=== PATIENT | male | born 1990 | race American Indian/Alaskan Native ===

== ENCOUNTER 2017-10-03 19:28 | Emergency (ER) | payer SELFPAY ==
[2017-10-03 20:04] VITALS: BP 108/69
[2017-10-03 20:36] LABS: Mucus,Urine 3+ /HPF
[2017-10-03 20:38] LABS: Bilirubin,Urine Negative (Negative); Blood,Urine Negative (Negative); Color,Urine Yellow (Yellow); Protein,Urine <15 mg/dL mg/dL (Negative); Urobilinogen,Urine < 2.0 mg/dL (<2.0)
[2017-10-03] MEDS ORDERED: ROCEPHIN IM ONE (23:57)
[2017-10-03] MEDS ORDERED: ZITHROMAX PO ONE (23:57)
[2017-10-03] MEDS ORDERED: XYLOCAINE 1% MPF 5 mL INFILTRATI ONE (23:57)
--- NOTE | 2017-10-04 00:51 | Emergency Department Report ---
ED Male HPI - General Chief complaint: Urogenital-Male Stated complaint: BURNING URINATION Time Seen by Provider: 10/03/17 23:57 Source: patient Mode of arrival: Ambulatory Limitations: No Limitations - History of Present Illness Initial comments: Patient is a 27-year-old male who presents for STD exposure Advise Him of gonorrhea patient requesting treatment for same does endorse dysuria or burning with urination or penile discharge no rashes lesions to open wounds MD Complaint: penile discharge, dysuria Onset/Timin Location: penis Radiation: none Severity: moderate Severity scale (0 -10): 3 Quality: burning Consistency: intermittent Improves with: none Worsens with: urination new sexual partner denies other symptoms - Related Data Sexually active: Yes Previous Rx's Medication Instructions Recorded Last Taken Type Doxycycline [Vibramycin CAP] 100 mg PO BID #20 capsule 10/04/17 Unknown Rx Allergies Allergy/AdvReac Type Severity Reaction Status Date / Time No Known Allergies Allergy Unverified 10/03/17 20:00 ED Review of Systems ROS: Stated complaint: BURNING URINATION Other details as noted in HPI Constitutional: denies: chills, fever Eyes: denies: eye pain, eye discharge, vision change ENT: denies: ear pain, throat pain Respiratory: denies: cough, shortness of breath, wheezing Cardiovascular: denies: chest pain, palpitations Endocrine: no symptoms reported Gastrointestinal: denies: abdominal pain, nausea, diarrhea Genitourinary: urgency, dysuria, discharge. denies: hematuria, testicular pain , testicular mass Musculoskeletal: denies: back pain, joint swelling, arthralgia Skin: denies: rash, lesions Neurological: denies: headache, weakness, paresthesias Psychiatric: denies: anxiety, depression Hematological/Lymphatic: denies: easy bleeding, easy bruising ED Past Medical Hx - Past Medical History Hx Asthma: Yes - Surgical History Past Surgical History?: No - Social History Smoking Status: Never Smoker Substance Use Type: None - Medications Home Medications: Home Medications Medication Instructions Recorded Confirmed Last Taken Type Doxycycline [Vibramycin CAP] 100 mg PO BID #20 capsule 10/04/17 Unknown Rx ED Physical Exam - General Limitations: No Limitations General appearance: alert, in no apparent distress - Head Head exam: Present: atraumatic, normocephalic - Eye Eye exam: Present: normal appearance - ENT ENT exam: Present: mucous membranes moist - Neck Neck exam: Present: normal inspection - Respiratory Respiratory exam: Present: normal lung sounds bilaterally. Absent: respiratory distress, wheezes, stridor, chest wall tenderness - Cardiovascular Cardiovascular Exam: Present: regular rate, normal rhythm, normal heart sounds. Absent: systolic murmur, diastolic murmur, rubs, gallop - GI/Abdominal GI/Abdominal exam: Present: soft, normal bowel sounds. Absent: distended, rebound, bruit, hernia - Rectal Rectal exam: Present: deferred - Extremities Exam Extremities exam: Present: normal inspection - Back Exam Back exam: Present: normal inspection - Neurological Exam Neurological exam: Present: alert, oriented X3, CN II-XII intact, normal gait, reflexes normal - Psychiatric Psychiatric exam: Present: normal affect, normal mood - Skin Skin exam: Present: warm, dry, intact ED Course Vital Signs 10/03/17 20:00 Temperature 98.2 F Pulse Rate 64 Respiratory 18 Rate Blood Pressure 108/69 [Left] O2 Sat by Pulse 100 Oximetry ED Medical Decision Making - Medical Decision Making This is an STI patient treated for STD will follow-up with [facility] department for HIV and HSV screening DC'd home with doxycycline by mouth twice a day for 10 days patient will abstain from sex until treatment completed and follow up with health department he verbalizes understanding and agreement with same will be DC 'd home in stable condition at this time Critical care attestation.: If time is entered above; I have spent that time in minutes in the direct care of this critically ill patient, excluding procedure time. ED Disposition Clinical Impression: STD (male) Disposition: DC- TO HOME OR SELFCARE Is pt being admited?: No Does the pt Need Aspirin: No Condition: Good Instructions: Sexually Transmitted Diseases (ED) Additional Instructions: follow up with [facility] for hiv and hsv screening and follow up Prescriptions: Doxycycline [Vibramycin CAP] 100 mg PO BID #20 capsule [facility] - [facility]5 Days Forms: Work/School Release Form(ED) Time of Disposition: 00:52
== END 2017-10-04 00:59 | disposition home or self-care (01) ==
LOC: ED 19:28
DX: A64 Unspecified sexually transmitted disease (principal); J45.909 Unspecified asthma, uncomplicated
CPT/HCPCS: 81001; 87591; 96372; 99283; J0696

== ENCOUNTER 2018-10-03 12:49 | Emergency (ER) | payer SELFPAY ==
--- NOTE | 2018-10-03 13:00 | Emergency Department Report ---
Blank Doc - Documentation Documentation: This is a 28-year-old male that presents with headache and cough. Stated gets headaches when coughing. Denies any SOB. Denies worst headache or thunderclap headache. This initial assessment/diagnostic orders/clinical plan/treatment(s) is/are subject to change based on patient's health status, clinical progression and re- assessment by fellow clinical providers in the ED. Further treatment and workup at subsequent clinical providers discretion. Patient/guardians urged not to elope from the ED as their condition may be serious if not clinically assessed and managed. Initial orders include: 1- Patient sent to [facility] for further evaluation and treatment 2- CXR
--- NOTE | 2018-10-03 13:34 | XRay Report ---
CHEST 2 VIEWS INDICATION: cough. COMPARISON: None FINDINGS: Support devices: None. Heart: Within normal limits. Lungs/pleura: No acute air space or interstitial disease. No pneumothorax. Additional findings: None. IMPRESSION: No acute findings. Signer Name: Agus Loza Jr, MD Signed: 10/03/2018 1:30 PM Workstation Name: [id number]
[2018-10-03] MEDS ORDERED: NACL 0.9% 1000 ML 1,000 ML IV ONE (18:21)
[2018-10-03] MEDS ORDERED: REGLAN IV ONE (18:21)
[2018-10-03] MEDS ORDERED: BANOPHEN PO ONE (18:21)
[2018-10-03 18:41] LABS: Hematocrit 46.7 % (35.5-45.6); Hemoglobin 15.9 gm/dl (11.8-15.2); Mean Corpuscular HGB Conc 34 % (32-34); Mean Corpuscular Volume 87 fl (84-94); Platelet Count 162 K/mm3 (140-440); Red Blood Count 5.37 M/mm3 (3.65-5.03); Red Cell Distribution Width 14.3 % (13.2-15.2)
[2018-10-03 18:51] LABS: Basophils % (Auto) 0.4 % (0.0-1.8); Eosinophils % (Auto) 0.1 % (0.0-4.3); Lymphocytes # (Auto) 0.5 K/mm3 (1.2-5.4); Lymphocytes % (Auto) 10.5 % (13.4-35.0); Monocytes % (Auto) 14.5 % (0.0-7.3)
[2018-10-03 18:52] LABS: Basophils # (Auto) 0.1 K/mm3 (0.0-0.1); Monocytes # (Auto) 0.7 K/mm3 (0.0-0.8)
[2018-10-03] MEDS ORDERED: TYLENOL PO ONE (19:00)
[2018-10-03 19:40] LABS: Alanine Aminotransferase 14 units/L (7-56); BUN/Creatinine Ratio 12; Blood Urea Nitrogen 13 mg/dL (9-20); Calcium 8.9 mg/dL (8.4-10.2); Hemolysis Index 24
--- NOTE | 2018-10-03 20:17 | Emergency Department Report ---
ED General Adult HPI - General Chief complaint: Chest Pain Stated complaint: HEADACHE/CHEST PAIN Time Seen by Provider: 10/03/18 12:59 Source: patient Mode of arrival: Ambulatory Limitations: No Limitations - History of Present Illness Initial comments: Patient is a 28-year-old male presents to the emergency room with complaints of a headache that began a couple days ago. He has associated subjective fever and rhinorrhea. The patient states that for the last 5 days he has been working outside in the sun. He states he has been drinking sodas and not drinking water. He denies any vomiting, diarrhea, cough, sore throat, earache. He denies any sick contacts. The patient states he took Benadryl one time with some relief. He states he has a past medical history of asthma. He denies being on any daily medications or any allergies to medications. Severity scale (0 -10): 5 - Related Data Previous Rx's Medication Instructions Recorded Last Taken Type DOXYCYCLINE Hyclate [Vibramycin 100 mg PO BID #20 capsule 10/04/17 Unknown Rx CAP] Allergies Allergy/AdvReac Type Severity Reaction Status Date / Time No Known Allergies Allergy Verified 10/03/18 12:52 ED Review of Systems ROS: Stated complaint: HEADACHE/CHEST PAIN Other details as noted in HPI Comment: All other systems reviewed and negative ED Past Medical Hx - Past Medical History Previous Medical History?: Yes Hx Asthma: Yes - Surgical History Past Surgical History?: Yes - Social History Smoking Status: Never Smoker Substance Use Type: None, Marijuana - Medications Home Medications: Home Medications Medication Instructions Recorded Confirmed Last Taken Type DOXYCYCLINE Hyclate [Vibramycin 100 mg PO BID #20 capsule 10/04/17 Unknown Rx CAP] ED Physical Exam - General Limitations: No Limitations General appearance: alert, in no apparent distress - Head Head exam: Present: atraumatic, normocephalic - Eye Eye exam: Present: normal appearance, PERRL, EOMI - ENT ENT exam: Present: normal orophraynx, mucous membranes moist, TM's normal bilaterally, normal external ear exam, other (no sinus tenderness to palpation bilaterally ) - Neck Neck exam: Present: full ROM. Absent: meningismus - Respiratory Respiratory exam: Present: normal lung sounds bilaterally. Absent: respiratory distress, wheezes, rales, rhonchi, stridor, chest wall tenderness, accessory muscle use, decreased breath sounds, prolonged expiratory - Cardiovascular Cardiovascular Exam: Present: regular rate, normal rhythm, normal heart sounds. Absent: systolic murmur, diastolic murmur, rubs, gallop - GI/Abdominal GI/Abdominal exam: Present: soft, normal bowel sounds. Absent: distended, tenderness, guarding, rebound, rigid - Neurological Exam Neurological exam: Present: alert, oriented X3 - Psychiatric Psychiatric exam: Present: normal affect, normal mood - Skin Skin exam: Present: warm, dry, intact ED Course Vital Signs 10/03/18 10/03/18 10/03/18 12:59 19:03 20:43 Temperature 98.2 F 102.9 F H 98.6 F Pulse Rate 76 75 62 Respiratory 18 18 16 Rate Blood Pressure 134/87 Blood Pressure 137/79 107/66 [Right] O2 Sat by Pulse 100 98 97 Oximetry ED Medical Decision Making - Lab Data Result diagrams: 10/03/18 18:26 10/03/18 18:26 Lab Results 10/03/18 10/03/18 Range/Units 18:26 18:26 WBC 4.9 (4.5-11.0) K/mm3 RBC 5.37 H (3.65-5.03) M/mm3 Hgb 15.9 H (11.8-15.2) gm/dl Hct 46.7 H (35.5-45.6) % MCV 87 (84-94) fl MCH 30 (28-32) pg MCHC 34 (32-34) % RDW 14.3 (13.2-15.2) % Plt Count 162 (140-440) K/mm3 Lymph % (Auto) 10.5 L (13.4-35.0) % [place] % (Auto) 14.5 H (0.0-7.3) % Eos % (Auto) 0.1 (0.0-4.3) % Baso % (Auto) 0.4 (0.0-1.8) % Lymph # 0.5 L (1.2-5.4) K/mm3 [place] # 0.7 (0.0-0.8) K/mm3 Eos # 0.0 (0.0-0.4) K/mm3 Baso # 0.1 (0.0-0.1) K/mm3 Seg Neutrophils % 71.8 H (40.0-70.0) % Seg Neutrophils # 3.5 (1.8-7.7) K/mm3 Sodium 136 L (137-145) mmol/L Potassium 3.8 (3.6-5.0) mmol/L Chloride 100.1 (98-107) mmol/L Carbon Dioxide 25 (22-30) mmol/L Anion Gap 15 mmol/L BUN 13 (9-20) mg/dL Creatinine 1.1 (0.8-1.5) mg/dL Estimated GFR > 60 ml/min BUN/Creatinine Ratio 12 % Glucose 85 (75-100) mg/dL Calcium 8.9 (8.4-10.2) mg/dL Total Bilirubin 0.30 (0.1-1.2) mg/dL AST 31 (5-40) units/L ALT 14 (7-56) units/L Alkaline Phosphatase 59 (35-129) units/L Total Creatine Kinase 473 H (55-170) units/L Total Protein 7.2 (6.3-8.2) g/dL Albumin 4.0 (3.9-5) g/dL Albumin/Globulin Ratio 1.3 % - Radiology Data Radiology results: report reviewed CHEST 2 VIEWS INDICATION: cough. COMPARISON: None FINDINGS: Support devices: None. Heart: Within normal limits. Lungs/pleura: No acute air space or interstitial disease. No pneumothorax. Additional findings: None. IMPRESSION: No acute findings. Signer Name: Agus Mast Jr, MD Signed: 10/03/2018 1:30 PM Workstation Name: [id number] Transcribed By: TTR Dictated By: AGUS MAST JR, MD Electronically Authenticated By: AGUS MAST JR, MD Signed Date/Time: 10/03/18 8990 - Medical Decision Making Patient is a 28-year-old male presents to the emergency room with complaints of a headache that began a couple days ago. He has associated subjective fever and rhinorrhea. The patient states that for the last 5 days he has been working outside in the sun. He states he has been drinking sodas and not drinking water. He denies any vomiting, diarrhea, cough, sore throat, earache. He denies any sick contacts. The patient states he took Benadryl one time with some relief. He states he has a past medical history of asthma. He denies b eing on any daily medications or any allergies to medications. pt initially febrile, given tylenol and now afebrile, rest of vitals WNL. labs with mildly elevated CK otherwise stable. CXR with no acute process. pt given 1L of fluids, reglan, and benadryl. pt states he feels much better states he is ready to go home and is now hungry and ready to eat and states all his symptoms are better. pt symptoms and examination consistent with viral syndrome/dehyration. advised pt to please drink lots of fluids over the next few days. Please get plenty of rest. Follow-up with primary care doctor in the next 2-3 days. return to the emergency room for any new or worsening symptoms. - Differential Diagnosis dehydration, rhabdo, URI, sinusitis, viral syndrome Critical care attestation.: If time is entered above; I have spent that time in minutes in the direct care of this critically ill patient, excluding procedure time. ED Disposition Clinical Impression: Rhinorrhea Headache Qualifiers: Headache type: unspecified Headache chronicity pattern: acute headache Intractability: not intractable Qualified Code(s): R51 - Headache Fever Qualifiers: Fever type: unspecified Qualified Code(s): R50.9 - Fever, unspecified Disposition: DC-01 TO HOME OR SELFCARE Is pt being admited?: No Does the pt Need Aspirin: No Condition: Stable Instructions: Dehydration (ED), Viral Syndrome (ED) Additional Instructions: Please drink lots of fluids over the next few days. Please get plenty of rest. Follow-up with primary care doctor in the next 2-3 days. return to the emergency room for any new or worsening symptoms. Referrals: ESA TEJEDA MD [Primary Care Provider] - 2-3 Days [facility] [Outside] - 2-3 Days [facility] [Outside] - 2-3 Days Forms: Work/School Release Form(ED) Time of Disposition: 20:21 Print Language: GERMAN
[2018-10-03 20:45] VITALS: BP 107/66
== END 2018-10-03 20:48 | disposition home or self-care (01) ==
LOC: ED 12:49
DX: R51 Headache (principal); J34.89 Other specified disorders of nose and nasal sinuses; R50.9 Fever, unspecified; J45.909 Unspecified asthma, uncomplicated; F12.10 Cannabis abuse, uncomplicated
CPT/HCPCS: 36415; 71046; 80053; 82550; 85025; 96374; 99284; J2765; J7030; Q0163

== ENCOUNTER 2020-04-25 09:35 | Emergency (ER) | payer SELFPAY ==
[2020-04-25] MEDS ORDERED: PIPERACILLIN/TAZOBACTAM 3.375 3.375 GM/50 ML BAG IV ONE (10:15)
[2020-04-25] MEDS ORDERED: KETOROLAC 30 MG/1 ML INJ IV ONE (10:15)
[2020-04-25] MEDS ORDERED: SODIUM CHLORIDE 0.9% 1000 ML 1,000 ML IV ONE (10:15)
--- NOTE | 2020-04-25 10:16 | Event Note ---
ED Screening Note Date of service: 04/25/20 Time: 10:16 ED Screening Note: Patient reports swelling to the right groin. Started of small 1 week ago but has been getting worse and more painful. He reports urinary frequency but no other UTI symptoms. He denies any penile discharge. He denies any testicular pain or swelling. He denies any fever or chills at home. Physical exam: Large area of swelling noted to the right groin area with associated cellulitis This initial assessment/diagnostic orders/clinical plan/treatment(s) is/are subject to change based on patients health status, clinical progression and re- assessment by fellow clinical providers in the ED. Further treatment and workup at subsequent clinical providers discretion. Patient/guardian urged not to elope from the ED as their condition may be serious if not clinically assessed and managed. Initial orders include: CBC, CMP, CT abdomen pelvis with IV contrast, lactic acid and blood cultures
--- NOTE | 2020-04-25 10:39 | Emergency Department Report ---
HPI - General Chief Complaint: Abdominal Pain Time Seen by Provider: 04/25/20 10:04 - HPI HPI: This is a 29-year-old -[place] male presents to the emergency department with a complaint of swelling to the right groin that has been going on for the past week and getting progressively bigger and slightly more painful. The patient says that he does not actually very painful, but there is a pressure sensation as it has grown. He denies any problems with bowel or bladder, but says that he feels like he has to urinate more frequently due to the pressure in this area. He is sexually active but says it has been a few months since he did engage in any sexual intercourse. He does have a history of having gonorrhea and chlamydia in the past. He denies any penile discharge, rash or lesions to the genitals. He denies any fever, nausea, vomiting, abdominal pain. He has not taken anything for his symptoms prior to presentation. ED Past Medical Hx - Past Medical History Previous Medical History?: Yes Hx Asthma: Yes - Surgical History Past Surgical History?: Yes - Social History Smoking Status: Never Smoker Substance Use Type: None - Medications Home Medications: Home Medications Medication Instructions Recorded Confirmed Last Taken Type DOXYCYCLINE Hyclate [Vibramycin 100 mg PO BID #14 capsule 04/25/20 Unknown Rx CAP] ED Review of Systems ROS: Stated complaint: PAINFUL LUMP ON RIGHT SIDE PELVIC AREA Other details as noted in HPI Comment: All other systems reviewed and negative Constitutional: denies: chills, fever Eyes: denies: eye pain, vision change ENT: denies: ear pain, throat pain Respiratory: denies: cough, shortness of breath Cardiovascular: denies: chest pain, palpitations Gastrointestinal: denies: abdominal pain, vomiting Genitourinary: frequency, other (Right groin pain and swelling). denies: discharge, testicular pain Musculoskeletal: denies: back pain, arthralgia Skin: denies: rash, lesions Neurological: denies: headache, weakness Physical Exam - Physical Exam Vital Signs: Vital Signs 04/25/20 09:41 Temperature 99.2 F Pulse Rate 81 Respiratory 16 Rate Blood Pressure 133/80 O2 Sat by Pulse 99 Oximetry Physical Exam: GENERAL: The patient is well-developed well-nourished. HENT: Normocephalic. Atraumatic. Patient has moist mucous membranes. EYES: Extraocular motions are intact. NECK: Supple. Trachea is midline. CHEST/LUNGS: Clear to auscultation. There is no respiratory distress noted. HEART/CARDIOVASCULAR: Regular. There is no tachycardia. There is no murmur. ABDOMEN: Abdomen is soft, nontender. Patient has normal bowel sounds. There is no abdominal distention. SKIN: Skin is warm and dry. NEURO: The patient is awake, alert, and oriented. The patient is cooperative. The patient has no focal neurologic deficits. Normal speech. MUSCULOSKELETAL: There is no tenderness or deformity. : There is a moderate sized, firm but mobile, node to the right groin. This area is slightly tender to palpation. No fluctuance. No erythema. ED Course Vital Signs 04/25/20 09:41 Temperature 99.2 F Pulse Rate 81 Respiratory 16 Rate Blood Pressure 133/80 O2 Sat by Pulse 99 Oximetry ED Medical Decision Making - Lab Data Result diagrams: 04/25/20 10:37 04/25/20 10:37 Lab Results 04/25/20 04/25/20 04/25/20 Range/Units 10:37 10:37 10:37 WBC 8.5 (4.5-11.0) K/mm3 RBC 4.75 (3.65-5.03) M/mm3 Hgb 13.6 (11.8-15.2) gm/dl Hct 41.2 (35.5-45.6) % MCV 87 (84-94) fl MCH 29 (28-32) pg MCHC 33 (32-34) % RDW 14.9 (13.2-15.2) % Plt Count 214 (140-440) K/mm3 Lymph % (Auto) 18.0 (13.4-35.0) % [place] % (Auto) 12.5 H (0.0-7.3) % Eos % (Auto) 0.6 (0.0-4.3) % Baso % (Auto) 0.3 (0.0-1.8) % Lymph # (Auto) 1.5 (1.2-5.4) K/mm3 [place] # (Auto) 1.1 H (0.0-0.8) K/mm3 Eos # (Auto) 0.0 (0.0-0.4) K/mm3 Baso # (Auto) 0.0 (0.0-0.1) K/mm3 Seg Neutrophils % 68.6 (40.0-70.0) % Seg Neutrophils # 5.9 (1.8-7.7) K/mm3 Sodium 137 (137-145) mmol/L Potassium 3.5 L (3.6-5.0) mmol/L Chloride 100.4 (98-107) mmol/L Carbon Dioxide 29 (22-30) mmol/L Anion Gap 11 mmol/L BUN 11 (9-20) mg/dL Creatinine 1.1 (0.8-1.3) mg/dL Estimated GFR > 60 ml/min BUN/Creatinine Ratio 10 % Glucose 95 (75-100) mg/dL Lactic Acid 0.90 (0.7-2.0) mmol/L Calcium 8.8 (8.4-10.2) mg/dL Total Bilirubin 0.50 (0.1-1.2) mg/dL AST 20 (5-40) units/L ALT 10 (7-56) units/L Alkaline Phosphatase 61 (35-129) units/L Total Protein 8.3 H (6.3-8.2) g/dL Albumin 3.9 (3.9-5) g/dL Albumin/Globulin Ratio 0.9 % Urine Color (Yellow) Urine Turbidity (Clear) Urine pH (5.0-7.0) Ur Specific [place] (1.003-1.030) Urine Protein (Negative) mg/dL Urine Glucose (UA) (Negative) mg/dL Urine Ketones (Negative) mg/dL Urine Blood (Negative) Urine Nitrite (Negative) Urine Bilirubin (Negative) Urine Urobilinogen (<2.0) mg/dL Ur Leukocyte Esterase (Negative) Urine WBC (Auto) (0.0-6.0) /HPF Urine RBC (Auto) (0.0-6.0) /HPF U Epithel Cells (Auto) (0-13.0) /HPF Urine Mucus /HPF 04/25/20 Range/Units Unknown WBC (4.5-11.0) K/mm3 RBC (3.65-5.03) M/mm3 Hgb (11.8-15.2) gm/dl Hct (35.5-45.6) % MCV (84-94) fl MCH (28-32) pg MCHC (32-34) % RDW (13.2-15.2) % Plt Count (140-440) K/mm3 Lymph % (Auto) (13.4-35.0) % [place] % (Auto) (0.0-7.3) % Eos % (Auto) (0.0-4.3) % Baso % (Auto) (0.0-1.8) % Lymph # (Auto) (1.2-5.4) K/mm3 [place] # (Auto) (0.0-0.8) K/mm3 Eos # (Auto) (0.0-0.4) K/mm3 Baso # (Auto) (0.0-0.1) K/mm3 Seg Neutrophils % (40.0-70.0) % Seg Neutrophils # (1.8-7.7) K/mm3 Sodium (137-145) mmol/L Potassium (3.6-5.0) mmol/L Chloride (98-107) mmol/L Carbon Dioxide (22-30) mmol/L Anion Gap mmol/L BUN (9-20) mg/dL Creatinine (0.8-1.3) mg/dL Estimated GFR ml/min BUN/Creatinine Ratio % Glucose (75-100) mg/dL Lactic Acid (0.7-2.0) mmol/L Calcium (8.4-10.2) mg/dL Total Bilirubin (0.1-1.2) mg/dL AST (5-40) units/L ALT (7-56) units/L Alkaline Phosphatase (35-129) units/L Total Protein (6.3-8.2) g/dL Albumin (3.9-5) g/dL Albumin/Globulin Ratio % Urine Color Nati (Yellow) Urine Turbidity Clear (Clear) Urine pH 6.0 (5.0-7.0) Ur Specific [place] 1.028 (1.003-1.030) Urine Protein 30 mg/dl (Negative) mg/dL Urine Glucose (UA) Neg (Negative) mg/dL Urine Ketones Tr (Negative) mg/dL Urine Blood Sm (Negative) Urine Nitrite Neg (Negative) Urine Bilirubin Neg (Negative) Urine Urobilinogen 4.0 (<2.0) mg/dL Ur Leukocyte Esterase Tr (Negative) Urine WBC (Auto) 24.0 H (0.0-6.0) /HPF Urine RBC (Auto) 18.0 (0.0-6.0) /HPF U Epithel Cells (Auto) < 1.0 (0-13.0) /HPF Urine Mucus 3+ /HPF - Radiology Data Radiology results: report reviewed CT ABDOMEN AND PELVIS WITH CONTRAST HISTORY: MAIN. Abdominal swelling and redness with pain in the right groin, palpable knot in this area COMPARISON: None. TECHNIQUE: CT images of the abdomen and pelvis were obtained following administration of intravenous contrast. All CT scans at this location are performed using CT dose reduction for ALARA by means of automated exposure control. CONTRAST: 100 ml of intravenous contrast administered. FINDINGS: Lungs/bones: Lung bases are clear. No acute osseous abnormality identified. Abdomen/pelvis: There is bilateral inguinal adenopathy although this is much more pronounced in the right inguinal region where there are more bulky lymph nodes and adjacent inflammatory stranding. One sales representative meats lymph node measures 1.9 cm in short axis and 3.1 cm in long axis on image 167 of series #2. No hernia identified. There is also adenopathy tracking along the external iliac chain region and to a lesser extent along the right internal iliac chain region although visualization in the pelvis admittedly is difficult given lack of in tra-abdominal fat. The liver, gallbladder, spleen, pancreas, adrenals, kidneys, and proximal GI tract appear unremarkable. Urinary bladder and prostate appear unremarkable with no pelvic free fluid. There is colonic diverticulosis with no acute inflammatory change identified. IMPRESSION: 1. Extensive adenopathy greatest in the right inguinal region but also extends into the right iliac chain region. Infectious/inflammatory process is in the differential; however, given the size of these lymph nodes and extent a neoplastic process such as lymphoma is also in the differential. - Medical Decision Making This patient presents to the emergency department with swelling to the right groin that has gotten progressively larger and has become slightly painful over the past week. On examination the patient does have a moderate sized nodular lesion in the right groin that is slightly tender to palpation, firm but mobile. It does not feel fluctuant like an abscess. There is no overlying erythema, rash or skin change. It feels most consistent with lymphadenopathy. Patient's labs have been mostly unremarkable including CBC and metabolic panel, but he does have a mild urinary tract infection seen on urinalysis. CT scan of the abdomen and pelvis with IV contrast shows "Extensive adenopathy greatest in the right inguinal region but also extends into the right iliac chain region." This is most likely consistent with an infectious or inflammatory process, but given the extensive adenopathy lymphoma is also in the differential. The patient is a young, sexually active male, who says that he has not had sexual intercourse for about 4 months. He does have a previous history of gonorrhea chlamydia but says that he was treated at that time. Given the unilateral groin swelling in this demographic, I will treat the patient with Rocephin and doxycycline for possible an empiric treatment of gonorrhea and chlamydia with chlamydia being the greatest concern for possible lymphogranuloma venereum. However, the patient and I did have a long discussion regarding the importance of following up outpatient with a primary care physician and making sure there is resolution of the lymphadenopathy. We discussed that lymphoma, although less likely, it is still within the differential. The patient's CBC was unremarkable. He has been given multiple outpatient referrals for primary care. He is also been instructed to return to the closest emergency department with any worsening of his symptoms or with any acute distress. Critical Care Time: No Critical care attestation.: If time is entered above; I have spent that time in minutes in the direct care of this critically ill patient, excluding procedure time. ED Disposition Clinical Impression: Inguinal lymphadenopathy, Lymphadenitis, acute Disposition: - TO HOME OR SELFCARE Is pt being admited?: No Condition: Stable Instructions: Lymphadenopathy Additional Instructions: Please follow-up with a primary care physician in the next few days. I will give you a referral for multiple local primary care physicians and a clinic. Take the medications as prescribed. Return to the emergency department with any worsening of your symptoms including new areas of swelling, new or concerning symptoms not addressed during this current emergency department visit, or with any acute distress. Prescriptions: DOXYCYCLINE Hyclate [Vibramycin CAP] 100 mg PO BID #14 capsule Referrals: PRIMARY MD RAFA [Primary Care Provider] - 3-5 Days ALYSON DIAZ MD [Staff Physician] - 3-5 Days PIETER VICTORIA MD [Staff Physician] - 3-5 Days SUMA MIRZA MD [Staff Physician] - 3-5 Days JAVAD BECK MD [Staff Physician] - 3-5 Days [facility] [Provider Group] - 3-5 Days Time of Disposition: 12:58
[2020-04-25 11:03] LABS: Basophils % (Auto) 0.3 % (0.0-1.8); Eosinophils % (Auto) 0.6 % (0.0-4.3); Hematocrit 41.2 % (35.5-45.6); Hemoglobin 13.6 gm/dl (11.8-15.2); Lymphocytes # (Auto) 1.5 K/mm3 (1.2-5.4); Mean Corpuscular HGB Conc 33 % (32-34); Mean Corpuscular Volume 87 fl (84-94); Monocytes # (Auto) 1.1 K/mm3 (0.0-0.8); Monocytes % (Auto) 12.5 % (0.0-7.3); Platelet Count 214 K/mm3 (140-440); Red Blood Count 4.75 M/mm3 (3.65-5.03); Red Cell Distribution Width 14.9 % (13.2-15.2)
[2020-04-25 11:04] LABS: Bilirubin,Urine NEG (Negative); Blood,Urine SM (Negative); Color,Urine Amber (Yellow); Mucus,Urine 3+ /HPF
[2020-04-25 11:15] LABS: Alanine Aminotransferase 10 units/L (7-56); Albumin 3.9 g/dL (3.9-5); BUN/Creatinine Ratio 10; Blood Urea Nitrogen 11 mg/dL (9-20); Calcium 8.8 mg/dL (8.4-10.2); Hemolysis Index 3
--- NOTE | 2020-04-25 12:33 | Cat Scan Report ---
CT ABDOMEN AND PELVIS WITH CONTRAST HISTORY: MAIN. Abdominal swelling and redness with pain in the right groin, palpable knot in this ar ea COMPARISON: None. TECHNIQUE: CT images of the abdomen and pelvis were obtained following administration of intravenous contrast. All CT scans at this location are performed using CT dose reduction for ALARA by means of automated exposure control. CONTRAST: 100 ml of intravenous contrast administered. FINDINGS: Lungs/bones: Lung bases are clear. No acute osseous abnormality identified. Abdomen/pelvis: There is bilateral inguinal adenopathy although this is much more pronounced in the right inguinal region where there are more bulky lymph nodes and adjacent inflammatory stranding. One collections representative lymph node measures 1.9 cm in short axis and 3.1 cm in long axis on image 167 of seri es #2. No hernia identified. There is also adenopathy tracking along the external iliac chain region and to a lesser extent along the right internal iliac chain region although visualization in the pelv is admittedly is difficult given lack of intra-abdominal fat. The liver, gallbladder, spleen, pancreas, adrenals, kidneys, and proximal GI tract appear unremarkabl e. Urinary bladder and prostate appear unremarkable with no pelvic free fluid. There is colonic divertic ulosis with no acute inflammatory change identified. IMPRESSION: 1. Extensive adenopathy greatest in the right inguinal region but also extends into the right iliac c brayan region. Infectious/inflammatory process is in the differential; however, given the size of these lymph nodes and extent a neoplastic process such as lymphoma is also in the differential. Signer Name: Osmany Warren MD Signed: 04/25/2020 12:29 PM Workstation Name: [id number]
[2020-04-25] MEDS ORDERED: LIDOCAINE-MPF (1%) 10 MG/1 ML VIAL 5 ML INFILTRATI ONE (12:47)
[2020-04-25 13:36] VITALS: BP 140/85
== END 2020-04-25 13:37 | disposition home or self-care (01) ==
LOC: ED 09:35
DX: L04.9 Acute lymphadenitis, unspecified (principal); J45.909 Unspecified asthma, uncomplicated; Z79.899 Other long term (current) drug therapy
CPT/HCPCS: 36415; 74177; 80053; 81001; 82140; 85025; 87040; 87086; 96365; 96372; 96375; 99284; J0696; J1885; J2543; J7030; Q9967

== ENCOUNTER 2020-07-24 10:40 | Emergency (ER) | payer SELFPAY ==
[2020-07-24 11:13] VITALS: BP 119/83
[2020-07-24] MEDS ORDERED: HYDROcodone/ACETAMINOPHEN 5-325 MG TAB PO STA (12:08)
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
== END 2020-07-24 13:30 | disposition home or self-care (01) ==
LOC: ED 10:40
DX: S00.83XA Contusion of other part of head, initial encounter (principal); J45.909 Unspecified asthma, uncomplicated; F17.200 Nicotine dependence, unspecified, uncomplicated; Z72.89 Other problems related to lifestyle; Z79.899 Other long term (current) drug therapy; V89.2XXA Person injured in unspecified motor-vehicle accident, traffic, initial encounter; Y93.89 Activity, other specified; Y92.488 Other paved roadways as the place of occurrence of the external cause; Y99.8 Other external cause status
CPT/HCPCS: 70486; 99283

== ENCOUNTER 2020-07-30 16:41 | Emergency (ER) | payer SELFPAY ==
[2020-07-30] MEDS ORDERED: oxyCODONE /ACETAMINOPHEN 5-325MG TAB PO ONE (17:55)
[2020-07-30] MEDS ORDERED: ONDANSETRON 4 MG ODT TAB PO ONE (17:55)
[2020-07-30] MEDS ORDERED: KETOROLAC 30 MG/1 ML INJ IM ONE (17:57)
[2020-07-30] MEDS ORDERED: ACYCLOVIR 800 MG TAB PO ONE (18:00)
--- NOTE | 2020-07-30 18:03 | Emergency Department Report ---
ED General Adult HPI - General Chief complaint: Skin Rash Stated complaint: ALLERGIC REACTION Source: patient Mode of arrival: Ambulatory Limitations: No Limitations - History of Present Illness Initial comments: Patient is a 29-year-old -Citizen Of [place] male with a past medical history of asthma presents to the ED with complaint of acute onset persistent painful erythematous ulcerated rashes on the left thigh that radiates from the left upper posterior thigh to the medial thigh for the last 3 days. Patient states that he is unable to bear weight on the left leg because of pain and that he is unable to wear his undock garments because of worsening burning pain. Patient states that any palpation of the area makes the pain worse. Patient describes the pain as sharp, burning and constant. Patient denies fever, chills, nausea, vomiting, dizziness, syncope, traumatic injury, fall, dysuria, urinary frequency and urgency, hematuria, dysuria, testicular pain or penile discharge, abdominal pain or heavy lifting. MD Complaint: Painful erythematous maculopapular rash on left thigh -: Sudden, days(s) (3) Location: lower extremity (Left thigh) Radiation: non-radiation Severity scale (0 -10): 9 Quality: burning, aching, sharp Consistency: constant Improves with: none Worsens with: none Associated Symptoms: denies other symptoms, loss of appetite, malaise, rash (Erythematous maculopapular rash on left thigh). denies: confusion, chest pain, cough, diaphoresis, fever/chills, headaches, nausea/vomiting, seizure, shortness of breath, syncope, weakness Treatments Prior to Arrival: none - Related Data Previous Rx's Medication Instructions Recorded Last Taken Type DOXYCYCLINE Hyclate [Vibramycin 100 mg PO BID #14 capsule 04/25/20 Unknown Rx CAP] traMADoL [Ultram] 50 mg PO Q6HR PRN #14 tablet 07/24/20 Unknown Rx Gabapentin 300 mg PO Q8HR PRN #90 capsule 07/30/20 Unknown Rx HYDROcodone/APAP 5-325 [[place] 1 each PO Q6HR PRN #12 tablet 07/30/20 Unknown Rx 5/325] Ibuprofen [Motrin] 800 mg PO Q8HR PRN #30 tablet 07/30/20 Unknown Rx Ondansetron [Zofran Odt] 4 mg PO Q6HR PRN #15 tab.rapdis 07/30/20 Unknown Rx Valacyclovir HCl [Valtrex] 1,000 mg PO Q8H #30 tablet 07/30/20 Unknown Rx cephALEXin [Keflex] 500 mg PO Q6HR #40 capsule 07/30/20 Unknown Rx Allergies Allergy/AdvReac Type Severity Reaction Status Date / Time No Known Allergies Allergy Verified 10/03/18 12:52 ED Review of Systems ROS: Stated complaint: ALLERGIC REACTION Other details as noted in HPI Constitutional: denies: chills, fever Eyes: denies: eye pain, eye discharge, vision change ENT: denies: ear pain, throat pain Respiratory: denies: cough, shortness of breath, wheezing Cardiovascular: denies: chest pain, palpitations Endocrine: no symptoms reported Gastrointestinal: denies: abdominal pain, nausea, diarrhea Genitourinary: denies: urgency, dysuria Musculoskeletal: arthralgia (Severe left thigh pain due to erythematous maculopapular ulcerated vesicular lesions), myalgia. denies: back pain, joint swelling Skin: rash, change in color, other (Erythematous maculopapular ulcerated vesicular lesions on the left thigh). denies: lesions Neurological: denies: headache, weakness, paresthesias Psychiatric: denies: anxiety, depression Hematological/Lymphatic: denies: easy bleeding, easy bruising ED Past Medical Hx - Past Medical History Hx Asthma: Yes - Surgical History Past Surgical History?: No - Social History Smoking Status: Never Smoker Substance Use Type: Marijuana - Medications Home Medications: Home Medications Medication Instructions Recorded Confirmed Last Taken Type DOXYCYCLINE Hyclate [Vibramycin 100 mg PO BID #14 capsule 04/25/20 Unknown Rx CAP] traMADoL [Ultram] 50 mg PO Q6HR PRN #14 tablet 07/24/20 Unknown Rx Gabapentin 300 mg PO Q8HR PRN #90 capsule 07/30/20 Unknown Rx HYDROcodone/APAP 5-325 [[place] 1 each PO Q6HR PRN #12 tablet 07/30/20 Unknown Rx 5/325] Ibuprofen [Motrin] 800 mg PO Q8HR PRN #30 tablet 07/30/20 Unknown Rx Ondansetron [Zofran Odt] 4 mg PO Q6HR PRN #15 tab.rapdis 07/30/20 Unknown Rx Valacyclovir HCl [Valtrex] 1,000 mg PO Q8H #30 tablet 07/30/20 Unknown Rx cephALEXin [Keflex] 500 mg PO Q6HR #40 capsule 07/30/20 Unknown Rx ED Physical Exam - General Limitations: No Limitations General appearance: alert, in no apparent distress - Head Head exam: Present: atraumatic, normocephalic, normal inspection - Eye Eye exam: Present: normal appearance, PERRL, EOMI Pupils: Present: normal accommodation - ENT ENT exam: Present: normal exam, normal orophraynx, mucous membranes moist, TM's normal bilaterally, normal external ear exam - Neck Neck exam: Present: normal inspection, full ROM - Respiratory Respiratory exam: Present: normal lung sounds bilaterally. Absent: respiratory distress, wheezes, rales, rhonchi, chest wall tenderness, accessory muscle use, decreased breath sounds, prolonged expiratory - Cardiovascular Cardiovascular Exam: Present: regular rate, normal rhythm, normal heart sounds. Absent: systolic murmur, diastolic murmur, rubs, gallop - GI/Abdominal GI/Abdominal exam: Present: soft, normal bowel sounds. Absent: tenderness, guarding, rebound, hyperactive bowel sounds, hypoactive bowel sounds, organomegaly - Extremities Exam Extremities exam: Present: normal inspection, full ROM, tenderness (Palpable severe left thigh tenderness due to erythematous maculopapular ulcerated dermatomal vesicular lesions), normal capillary refill. Absent: calf tenderness - Back Exam Back exam: Present: normal inspection, full ROM. Absent: tenderness, CVA ten derness (R), CVA tenderness (L), muscle spasm, paraspinal tenderness, vertebral tenderness - Neurological Exam Neurological exam: Present: alert, oriented X3, CN II-XII intact, normal gait, reflexes normal - Psychiatric Psychiatric exam: Present: normal affect, normal mood, anxious - Skin Skin exam: Present: warm, dry, intact, rash (Erythematous maculopapular ulcerated dermatomal vesicular lesions on the left thigh), erythema, vesicles ED Course Vital Signs 07/30/20 17:48 Temperature 98.4 F Pulse Rate 73 Respiratory 18 Rate Blood Pressure 132/78 O2 Sat by Pulse 100 Oximetry ED Medical Decision Making - Medical Decision Making This is a 29-year-old -Citizen Of [place] male with a past medical history of asthma presents to the ED with complaint of acute onset persistent painful erythematous ulcerated rashes on the left thigh that radiates from the left upper posterior thigh to the medial thigh for the last 3 days. Patient states that he is unable to bear weight on the left leg because of pain and that he is unable to wear his undock garments because of worsening burning pain. Patient states that any palpation of the area makes the pain worse. Patient describes the pain as sharp, burning and constant. In the ED, patient is alert and oriented x3 and is not in any distress. Based on the history and physical exam findings, the patient was treated for pain in the ED and differential diagnosis includes folliculitis and shingles outbreak. Patient was discharged home on antiviral medication prescription, pain medications and was advised to follow-up with his primary care physician in 7 to 10 days for reevaluation or return to the ED immediately if symptoms get worse. - Differential Diagnosis Shingles; folliculitis; cellulitis; allergic reaction Critical care attestation.: If time is entered above; I have spent that time in minutes in the direct care of this critically ill patient, excluding procedure time. ED Disposition Clinical Impression: Acute folliculitis Shingles outbreak Qualifiers: Herpes zoster complications: without complications Qualified Code(s): B02.9 - Zoster without complications Disposition: DC-01 TO HOME OR SELFCARE Is pt being admited?: No Does the pt Need Aspirin: No Condition: Stable Instructions: Shingles, [id number], Neuropathic Pain, Folliculitis Additional Instructions: Your symptoms are all due to outbreak of shingles viral infection. Therefore take medications with food, drink plenty of fluids and follow-up with your primary care physician in 7 to 10 days for reevaluation. Return to the ED immediately if symptoms get worse. Prescriptions: Gabapentin 300 mg PO Q8HR PRN #90 capsule PRN Reason: Neuropathic pain cephALEXin [Keflex] 500 mg PO Q6HR #40 capsule Ibuprofen [Motrin] 800 mg PO Q8HR PRN #30 tablet PRN Reason: Pain , Severe (7-10) HYDROcodone/APAP 5-325 [[place] 5/325] 1 each PO Q6HR PRN #12 tablet PRN Reason: Pain Valacyclovir HCl [Valtrex] 1,000 mg PO Q8H #30 tablet Ondansetron [Zofran Odt] 4 mg PO Q6HR PRN #15 tab.rapdis PRN Reason: Nausea Referrals: [facility] [Provider Group] - 7-10 days Forms: Work/School Release Form(ED) Time of Disposition: 17:59 Print Language: BOLIVIAN
[2020-07-30 18:54] VITALS: BP 130/70
== END 2020-07-30 18:53 | disposition home or self-care (01) ==
LOC: ED 16:41
DX: L73.9 Follicular disorder, unspecified (principal); B02.9 Zoster without complications; J45.909 Unspecified asthma, uncomplicated; F12.10 Cannabis abuse, uncomplicated; Z79.1 Long term (current) use of non-steroidal anti-inflammatories (NSAID); Z79.899 Other long term (current) drug therapy
CPT/HCPCS: 96372; 99282; J1885; Q0162

== ENCOUNTER 2020-10-10 08:15 | Emergency (ER) | payer SELFPAY | END 2020-10-10 10:00 | disposition left against medical advice (07) | LOC: ED 08:15 | DX: Z00.8 Encounter for other general examination (principal); Z53.21 Procedure and treatment not carried out due to patient leaving prior to being seen by health care provider ==